=== PATIENT | female | born 1985 | race Caucasian/White ===

== ENCOUNTER 2019-04-03 19:16 | Emergency (ER) | payer BC ==
[2019-04-03] MEDS ORDERED: KETOROLAC 30 MG/ML 1 ML VIAL IVP STA (19:55)
[2019-04-03] MEDS ORDERED: guaiFENesin-DM 600/30MG 1 EACH TAB.ER.12H PO STA (19:55)
[2019-04-03] MEDS ORDERED: methylPREDNISolone SOD SUCCI 125 MG/2 ML VIAL IV STA (19:57)
--- NOTE | 2019-04-03 20:01 | ED ---
General Adult HPI - General Chief complaint: Upper Respiratory Infection Stated complaint: RIB pain Time Seen by Provider: 04/03/19 19:37 Source: patient Mode of arrival: ambulatory Limitations: no limitations - History of Present Illness Initial comments: 34-year-old female patient presents to the emergency department today for evaluation of persistent cough, left ear pain, and fevers. Patient states that she has been sick since 03/03/2019. Patient states symptoms started is regular cold with nasal congestion, sore throat, and cough. Patient states the cough persisted and on March 18 she was given Ceftin and a steroid Dosepak. Patient states that symptoms improved by the end of the Dosepak however started again once it was complete. States she developed left rib pain around the as well. Patient states the pain has been worsening. States it hurts when she takes a deep breath or with any coughing. States that she has been having fev ers daily. She is also reporting night sweats. Patient states that she has had hysterectomy in the past. She denies any calf pain or tenderness. Denies any leg swelling. Denies any recent long trips, history of DVT, clotting disorders, or use of hormonal medications. Patient denies any recent rash,abdominal pain, nausea, vomiting, diarrhea, constipation, back pain, numbness, tingling, dizzin ess, weakness, hematuria, dysuria, urinary urgency, urinary frequency, headache, visual changes, or any other complaints. - Related Data Previous Rx's Medication Instructions Recorded Albuterol Sulfate [Proair Hfa] 1 - 2 puff INHALATION Q6HR PRN #1 04/03/19 inhaler Benzonatate [Tessalon Perles] 200 mg PO TID #30 cap 04/03/19 Ketorolac [Toradol] 10 mg PO Q6HR #12 tab 04/03/19 Lidocaine 5% Patch [Lidoderm] 1 patch TOPICAL DAILY #5 patch 04/03/19 Promethazine 6.25MG/5Ml [Phenergan 6.25 mg PO Q6H #100 ml 04/03/19 Syrup] predniSONE 50 mg PO DAILY #5 tablet 04/03/19 Allergies Allergy/AdvReac Type Severity Reaction Status Date / Time No Known Allergies Allergy Verified 04/03/19 19:24 Review of Systems ROS Statement: Those systems with pertinent positive or pertinent negative responses have been documented in the HPI. ROS Other: All systems not noted in ROS Statement are negative. Past Medical History Past Medical History: No Reported History History of Any Multi-Drug Resistant Organisms: None Reported Past Surgical History: Hernia Repair, Hysterectomy Past Psychological History: No Psychological Hx Reported Smoking Status: Never smoker Past Alcohol Use History: Rare Past Drug Use History: None Reported General Exam Limitations: no limitations General appearance: alert, in no apparent distress, other (Physical well- developed, well-nourished adult female patient in mild distress related to pain. Vital signs on presentation her temperature 100.9F, pulse 116, respirations 19, blood pressure 111/69, pulse ox 99% on room air.) Eye exam: Present: normal appearance, PERRL, EOMI. Absent: scleral icterus, conjunctival injection, periorbital swelling ENT exam: Present: normal exam, normal oropharynx, mucous membranes moist Respiratory exam: Present: normal lung sounds bilaterally, chest wall tenderness (Left-sided rib tenderness). Absent: respiratory distress, wheezes, rales, rhonchi, stridor Cardiovascular Exam: Present: regular rate, normal rhythm, normal heart sounds. Absent: systolic murmur, diastolic murmur, rubs, gallop, clicks GI/Abdominal exam: Present: soft, normal bowel sounds. Absent: distended, tenderness, guarding, rebound, rigid Neurological exam: Present: alert, oriented X3, CN II-XII intact Psychiatric exam: Present: normal affect, normal mood Skin exam: Present: warm, dry, intact, normal color. Absent: rash Course Vital Signs 04/03/19 04/03/19 04/03/19 19:20 20:15 23:09 Temperature 100.9 F H 98.7 F Pulse Rate 116 H 92 Respiratory 19 20 16 Rate Blood Pressure 111/69 107/78 O2 Sat by Pulse 99 98 Oximetry Medical Decision Making - Medical Decision Making 34-year-old female patient presented to the emergency department today for evaluation of cough 1 month. Patient states the cough has been severe and persistent. States she is not having left rib pain. Patient denies any wheezing but does report intermittent shortness of breath. She has completed antibiotics and a steroid Dosepak without relief of symptoms. Physical examination did reveal left-sided rib tenderness. Lungs are clear to auscultation with good air movement. Patient did exhibit persistent cough during exam. Labs reviewed and showed a normal white blood cell count. Negative d-dimer. Chest x-ray showed no acute cardiopulmonary process. Left rib x-ray showed no displaced fracture. Given patient's symptoms and clinical presentation there is concern for an occult fracture of the rib. Patient will be started on a burst of steroids for acute bronchitis. She'll be given Tessalon Perles for daytime use and Phenergan with codeine for nighttime use. She is given Lidoderm patches for the rib and Toradol as well. She is instructed to follow-up with her primary care physician for recheck in 1-2 days. Return parameters were discussed in detail. She verbalizes understanding and agrees with this plan. - Lab Data Result diagrams: 04/03/19 20:13 04/03/19 20:13 Lab Results 04/03/19 04/03/19 04/03/19 Range/Units 20:13 20:13 20:13 WBC 6.7 (3.8-10.6) k/uL RBC 5.04 (3.80-5.40) m/uL Hgb 14.4 (11.4-16.0) gm/dL Hct 45.5 (34.0-46.0) % MCV 90.3 (80.0-100.0) fL MCH 28.6 (25.0-35.0) pg MCHC 31.7 (31.0-37.0) g/dL RDW 13.5 (11.5-15.5) % Plt Count 319 (150-450) k/uL Neutrophils % 56 % Lymphocytes % 27 % Monocytes % 10 % Eosinophils % 3 % Basophils % 1 % Neutrophils # 3.7 (1.3-7.7) k/uL Lymphocytes # 1.8 (1.0-4.8) k/uL Monocytes # 0.7 (0-1.0) k/uL Eosinophils # 0.2 (0-0.7) k/uL Basophils # 0.1 (0-0.2) k/uL D-Dimer 0.40 (<0.60) mg/L FEU Sodium 140 (137-145) mmol/L Potassium 4.4 (3.5-5.1) mmol/L Chloride 104 (98-107) mmol/L Carbon Dioxide 26 (22-30) mmol/L Anion Gap 10 mmol/L BUN 17 (7-17) mg/dL Creatinine 0.64 (0.52-1.04) mg/dL Est GFR (CKD-EPI)AfAm >90 (>60 ml/min/1.73 sqM) Est GFR (CKD-EPI)NonAf >90 (>60 ml/min/1.73 sqM) Glucose 88 (74-99) mg/dL Calcium 9.8 (8.4-10.2) mg/dL Total Bilirubin 0.4 (0.2-1.3) mg/dL AST 23 (14-36) U/L ALT 17 (9-52) U/L Alkaline Phosphatase 76 (38-126) U/L Total Protein 8.1 (6.3-8.2) g/dL Albumin 4.7 (3.5-5.0) g/dL - Radiology Data Radiology results: report reviewed, image reviewed Two-view x-ray of the chest is obtained. Report was reviewed in its entirety. Impression by Dr. Chiu shows no acute findings. Two-view x-ray of the left ribs were obtained. Report was reviewed in its entirety. Impression by Dr. Chiu shows no evidence of displaced rib fracture. Disposition Clinical Impression: Rib pain on left side, Acute bronchitis Disposition: HOME SELF-CARE Condition: Good Instructions (If sedation given, give patient instructions): Rib Fracture (ED), Acute Bronchitis (ED) Additional Instructions: Use lidoderm patches and pain medication as directed. Complete steroid prescription in full. Complete antibiotic as directed. [facility] for recheck in 1-2 days. Return immediately for any new, worsening, or concerning symptoms. Prescriptions: Lidocaine 5% Patch [Lidoderm] 1 patch TOPICAL DAILY #5 patch Promethazine 6.25MG/5Ml [Phenergan Syrup] 6.25 mg PO Q6H #100 ml predniSONE 50 mg PO DAILY #5 tablet Albuterol Sulfate [Proair Hfa] 1 - 2 puff INHALATION Q6HR PRN #1 inhaler PRN Reason: Shortness Of Breath Benzonatate [Tessalon Perles] 200 mg PO TID #30 cap Ketorolac [Toradol] 10 mg PO Q6HR #12 tab Is patient prescribed a controlled substance at d/c from ED?: No Referrals: Néstor Coppola MD [Primary Care Provider] - 1-2 days Time of Disposition: 22:44
[2019-04-03 20:38] LABS: Basophils # (A) 0.1 k/uL (0-0.2); Basophils % (A) 1 %; Eosinophils # (A) 0.2 k/uL (0-0.7); Eosinophils % (A) 3 %; HCT 45.5 % (34.0-46.0); HGB 14.4 gm/dL (11.4-16.0); Lymphocytes # (A) 1.8 k/uL (1.0-4.8); Lymphocytes % (A) 27 %; MCH 28.6 pg (25.0-35.0); MCHC 31.7 g/dL (31.0-37.0); MCV 90.3 fL (80.0-100.0); Mean Platelet Volume 6.8; Monocytes # (A) 0.7 k/uL (0-1.0); Monocytes % (A) 10 %; Neutrophils # (A) 3.7 k/uL (1.3-7.7); Neutrophils % (A) 56 %; Platelet Count 319 k/uL (150-450); RBC 5.04 m/uL (3.80-5.40); RDW 13.5 % (11.5-15.5); WBC 6.7 k/uL (3.8-10.6)
[2019-04-03 20:40] LABS: ALT 17 U/L (9-52); AST 23 U/L (14-36); Albumin 4.7 g/dL (3.5-5.0); Alkaline Phosphatase 76 U/L (38-126); Anion Gap 10 mmol/L; Blood Urea Nitrogen 17 mg/dL (7-17); Calcium 9.8 mg/dL (8.4-10.2); Carbon Dioxide 26 mmol/L (22-30); Chloride 104 mmol/L (98-107); Glucose 88 mg/dL (74-99); Potassium 4.4 mmol/L (3.5-5.1); Sodium 140 mmol/L (137-145); Total Bilirubin 0.4 mg/dL (0.2-1.3); Total Protein 8.1 g/dL (6.3-8.2)
--- NOTE | 2019-04-03 22:18 | XR ---
EXAM: XR Chest, 2 Views CLINICAL HISTORY: ITS.REASON XR Reason: Pain TECHNIQUE: Frontal and lateral views of the chest. COMPARISON: No relevant prior studies available. FINDINGS: Lungs: Unremarkable. No consolidation. Pleural space: Unremarkable. No pneumothorax. Heart: Unremarkable. No cardiomegaly. Mediastinum: Unremarkable. Bones/joints: Unremarkable. IMPRESSION: No acute findings.
--- NOTE | 2019-04-03 22:19 | XR ---
EXAM: XR Left Ribs, 2 Views CLINICAL HISTORY: ITS.REASON XR Reason: Pain TECHNIQUE: Frontal and oblique views of the left ribs. COMPARISON: No relevant prior studies available. FINDINGS: Lungs: Unremarkable as visualized. No consolidation. Pleural space: Unremarkable. No pneumothorax. Bones/joints: Unremarkable. No acute fracture. IMPRESSION: No evidence of displaced rib fracture.
[2019-04-03 23:10] VITALS: BP 107/78; PULSE 92; RESP 16; TEMP 98.7
== END 2019-04-03 23:09 | disposition home or self-care (01) ==
LOC: EC 19:16
DX: J20.9 Acute bronchitis, unspecified (principal)
CPT/HCPCS: 36415; 85379; 80053; 85025; 87040; 71100; 71046; 99284; 96374; 96375; J2930; J1885

== ENCOUNTER → 2022-08-27 | Outpatient (CLI) | payer BC ==
--- NOTE | 2022-08-28 11:54 | MM ---
Reason for Exam: Screening (asymptomatic). Last mammogram was performed 9 year(s) and 2 month(s) ago. Patient History: Menarche at age 10. First Full-Term at age 24. Hysterectomy at age 27. Hormonal Contraceptives for 7 years from age 15 until age 22. Risk Values: Meera 5 year model risk: 0.6%. NCI Lifetime model risk: 12.2%. Prior Study Comparison: 06/11/2013 Bilateral Diagnostic Mammogram, [facility]. Tissue Density: The breast tissue is extremely dense which could obscure a lesion on mammography. Findings: Analyzed By CAD. Scattered and loosely grouped benign-appearing tiny round calcifications bilaterally are present. There is 1.0 cm circumscribed oval lesion towards the right axilla favoring prominent but benign-appearing lymph node. There is no suspicious distortion or suspicious focal mass in either breast. Overall Assessment: Benign, BI-RAD 2 Management: Screening Mammogram of both breasts at age 39. Some advised bilateral breast ultrasound surveillance in patients with background extreme dense tissue. Electronically signed and approved by: Rashard De Dios M.D.
== END | disposition home or self-care (01) ==
LOC: RADMAMWWP 08:12
PROVIDERS: ATTEND Obstetrics & Gynecology
DX: Z12.31 Encounter for screening mammogram for malignant neoplasm of breast (principal)
CPT/HCPCS: 77063; 77067

== ENCOUNTER → 2023-12-30 | Outpatient (CLI) | payer BC ==
--- NOTE | 2023-12-31 21:37 | MM ---
Reason for Exam: Screening (asymptomatic). Last mammogram was performed 1 year(s) and 4 month(s) ago. Patient History: Menarche at age 10. First Full-Term at age 24. Hysterectomy at age 27. Hormonal Contraceptives for 7 years from age 15 until age 22. Risk Values: Meera 5 year model risk: 0.6%. NCI Lifetime model risk: 12.2%. Prior Study Comparison: 06/11/2013 Bilateral Diagnostic Mammogram, [facility]. 08/27/2022 Bilateral MG 3D screening mammo w/cad, [facility]. Tissue Density: The breast tissue is extremely dense which could obscure a lesion on mammography. Findings: Analyzed By CAD. The pattern is symmetrical. No significant interval change. No suspicious groups of microcalcifications, spiculated or lobular masses, architectural distortion or other secondary signs of malignancy are mammographically apparent. Overall Assessment: Benign, BI-RAD 2 Management: Screening Mammogram of both breasts in 1 year. A negative mammogram report should not preclude additional follow up of suspicious palpable abnormalities. Patient should continue monthly self breast exam. A clinical breast exam by your physician is recommended on an annual basis and results should be correlated with mammographic findings. Electronically signed and approved by: David Matos D.O. Radiologis
== END | disposition home or self-care (01) ==
LOC: RADMAMWWP 08:37
PROVIDERS: ATTEND Obstetrics & Gynecology
DX: Z12.31 Encounter for screening mammogram for malignant neoplasm of breast (principal)
CPT/HCPCS: 77063; 77067

== ENCOUNTER → 2025-02-01 | Outpatient (CLI) | payer BC ==
--- NOTE | 2025-02-02 07:36 | MM ---
Reason for Exam: Screening (asymptomatic). Last mammogram was performed 1 year(s) and 2 month(s) ago. Patient History: Menarche at age 10. First Full-Term at age 24. Hysterectomy at age 27. Hormonal Contraceptives for 7 years from age 15 until age 22. Risk Values: Meera 5 year model risk: 0.7%. NCI Lifetime model risk: 12.1%. Prior Study Comparison: 06/11/2013 Bilateral Diagnostic Mammogram, [facility]. 08/27/2022 Bilateral MG 3D screening mammo w/cad, [facility]. 12/30/2023 Bilateral MG 3D screening mammo w/cad, [facility]. Tissue Density: The breasts are extremely dense, which lowers the sensitivity of mammography. Findings: Analyzed By CAD. There is no suspicious group of microcalcifications in either breast. Asymmetric nodular density seen on the right MLO view above the level of the nipple 2.6 cm from the nipple and measuring 7 mm in size. Additional views are recommended. Overall Assessment: Incomplete: need additional imaging evaluation, BI-RAD 0 Management: Diagnostic Mammogram of the right breast. . Patient should continue monthly self-breast exams. A clinical breast exam by your physician is recommended on an annual basis. This exam should not preclude additional follow-up of suspicious palpable abnormalities. Note on Meera scores and lifetime risk: 1. A Meera score greater than 3% is considered moderate risk. If this is the case, consider specialist referral to assess eligibility for a risk reducing agent. 2. If overall lifetime risk for the development of breast cancer is 20% or higher, the patient may qualify for future screening with alternating mammogram and breast MRI. [facility], , 02/02/2025 7:34 AM. Electronically signed and approved by: John Kyle M.D. Radiologis
== END | disposition home or self-care (01) ==
LOC: RADMAMWWP 15:44
PROVIDERS: ATTEND Obstetrics & Gynecology
DX: Z12.31 Encounter for screening mammogram for malignant neoplasm of breast (principal); R92.343 Mammographic extreme density, bilateral breasts; Z92.0 Personal history of contraception
CPT/HCPCS: 77063; 77067

== ENCOUNTER → 2025-02-07 | Outpatient (CLI) | payer BC ==
--- NOTE | 2025-02-07 13:23 | MM ---
Reason for Exam: Additional evaluation requested from abnormal screening. Last screening mammogram was performed less than 1 month ago. Patient History: Menarche at age 10. First Full-Term at age 24. Hysterectomy at age 27. Hormonal Contraceptives for 7 years from age 15 until age 22. Risk Values: Meera 5 year model risk: 0.7%. NCI Lifetime model risk: 12.1%. Prior Study Comparison: 06/11/2013 Bilateral Diagnostic Mammogram, [facility]. 06/11/2013 Right Diagnostic Ultrasound, [facility]. 08/27/2022 Bilateral MG 3D screening mammo w/cad, [facility]. 12/30/2023 Bilateral MG 3D screening mammo w/cad, [facility]. 02/01/2025 Bilateral MG 3D screening mammo w/cad, [facility]. Tissue Density: Right: The breasts are extremely dense, which lowers the sensitivity of mammography. Findings: Analyzed By CAD. The superior asymmetric density had an anterior depth becomes less defined on additional views with an appearance unchanged from the 2021 prior. Findings compatible with a benign etiology. Overall Assessment: Benign, BI-RAD 2 Management: Screening Mammogram of both breasts in 1 year. Results were given to the patient verbally at the time of exam. Patient should continue monthly self-breast exams. A clinical breast exam by your physician is recommended on an annual basis. This exam should not preclude additional follow-up of suspicious palpable abnormalities. Note on Meera scores and lifetime risk: 1. A Meera score greater than 3% is considered moderate risk. If this is the case, consider specialist referral to assess eligibility for a risk reducing agent. 2. If overall lifetime risk for the development of breast cancer is 20% or higher, the patient may qualify for future screening with alternating mammogram and breast MRI. [facility], , 02/07/2025 1:20 PM. Electronically signed and approved by: Gricelda Meade M.D. Radiologist
== END | disposition home or self-care (01) ==
LOC: RADMAMWWP 12:52
PROVIDERS: ATTEND Obstetrics & Gynecology
DX: R92.8 Other abnormal and inconclusive findings on diagnostic imaging of breast (principal); R92.341 Mammographic extreme density, right breast; Z92.0 Personal history of contraception
CPT/HCPCS: 77061; 77065